=== PATIENT | female | born 1990 | race Caucasian/White ===

== ENCOUNTER 2017-12-02 11:29 | Emergency (ER) | payer OTHER, BC, MEDICAID ==
[~2017-12-02] VITALS: Ht 165.1 cm; Wt 83.5 kg
[~2017-12-02 11:29] MED LIST: BENZ56AE TP; HYDR-3583 PO; HYDR1TAB PO; IBP600T1 PO; OXYC-12 PO; PREN1TAB39 PO; SULF1TAB38 PO
--- OUTSIDE RECORDS SUMMARY | 2017-12-02 11:34 | XMS REPORT ---
Author HEATHER Bradford [facility] Address [address] [place] [address] Care Team Providers Care Direct Mail Coordinator Name Role Phone LIBERTY HEATHER Unavailable PROBLEMS Type Condition ICD9-CM Code TCD10-NT Code Onset Dates Condition Status SNOMED Code Problem Generalized anxiety disorder F41.1 Active 18370436 Problem Depressive disorder, not elsewhere classified F32.9 Active 52621818 ALLERGIES No Information ENCOUNTERS Encounter Location Date Diagnosis [place] [address] [address] July, [address] [address] July, test positive Z32.01 [place] [address] [address] Nov, [address] [address] Nov, Encounter for prescription of oral contraceptives Z30.011 ; Well woman exam Z01.419 ; control counseling Z30.09 ; Screening for STD sexually transmitted disease Z11.3 and Screening for cervical cancer Z12.4 [place] [address] [place] [id number] [place] [address] Oct, Visit for TB skin test Z11.[address] [address] Aug, Encounter for IUD removal Z30.432 and Encounter for Depo- Provera contraception Z30.42 [place] [address] [place] [id number] [place] [address] Apr, [place] [address] [address] Apr, [facility] [address] [place] [id number] [address] Mar, [facility] [address] [place] [id number] [address] Mar, [facility] [address] [place] [id number] [address] Feb, [facility] [address] [place] [id number] [address] Feb, [facility] [address] [place] [id number] [address] Sep, [facility] [address] [address] Feb, [facility] [address] [place] [id number] [address] Nov, IMMUNIZATIONS No Known Immunizations SOCIAL HISTORY Never Assessed REASON FOR VISIT test (walk-in) urine PLAN OF CARE VITAL SIGNS MEDICATIONS Unknown Medications RESULTS Name Result Date Reference Range TEST, URINE (IN HOUSE) 2017-07-15 RESULTS POSITIVE Lot # [id number] Control + Exp date 14 October 2018 PROCEDURES Procedure Date Ordered Result Body Site URINE TEST July 15, 2017 INSTRUCTIONS MEDICATIONS ADMINISTERED No Known Medications MEDICAL (GENERAL) HISTORY Type Description Date Medical History anxiety Surgical History cholecystectomy 2012 Hospitalization History childbirth only
--- OUTSIDE RECORDS SUMMARY | 2017-12-02 11:34 | XMS REPORT ---
Author Author LOWELL JOSE [facility] Address [address] [place] [address] Care Team Providers Care Hand I Cutter Name Role Phone LOWELL JOSE Unavailable PROBLEMS Type Condition ICD9-CM Code GAP70-CC Code Onset Dates Condition Status SNOMED Code Problem Generalized anxiety disorder F41.1 Active 06296494 Problem Depressive disorder, not elsewhere classified F32.9 Active 09748002 ALLERGIES No Known Allergies ENCOUNTERS Encounter Location Date Diagnosis [place] [address] [address] July, [address] [address] July, test positive Z32.01 [place] [address] [address] Nov, [place] [address] [address] Nov, Encounter for prescription of oral contraceptives Z30.011 ; Well woman exam Z01.419 ; control counseling Z30.09 ; Screening for STD sexually transmitted disease Z11.3 and Screening for cervical cancer Z12.4 [place] [address] [place] [id number] [place] [address] Oct, Visit for TB skin test Z11.1 [place] [address] [address] Aug, Encounter for IUD removal Z30.432 and Encounter for Depo- Provera contraception Z30.42 [place] [address] [place] [id number] [place] [address] Apr, [place] [address] [address] Apr, [facility] [place] [address] [place] [id number] [address] Mar, [facility] [id number] [address] Mar, [facility] [place] [id number] [address] Feb, [facility] [place] [id number] [address] Feb, [facility] [place] [id number] [address] Sep, [facility] [place] [id number] [address] Feb, [facility] [place] [address] [place] [id number] [address] Nov, IMMUNIZATIONS No Known Immunizations SOCIAL HISTORY Never Assessed REASON FOR VISIT control consult-Ryann, wants to switch to OCP due to cost PLAN OF CARE Activity Details Follow Up 1 Year with Jessica for well woman Reason: VITAL SIGNS Height 65 in 2016-11-19 Weight 159.8 lbs 2016-11-19 Temperature 98.2 degrees Fahrenheit 2016-11-19 Heart Rate 74 bpm 2016-11-19 Respiratory Rate 18 2016-11-19 BMI 26.59 kg/m2 2016-11-19 Blood pressure systolic 124 mmHg 2016-11-19 Blood pressure diastolic 72 mmHg 2016-11-19 MEDICATIONS Medication Instructions Dosage Frequency Start Date End Date Duration Status Ortho Tri-Cyclen (28) 0.18/0.215/0.25 MG-35 MCG Orally Once a day 1 tablet 24h Nov, 30 day(s) Active Depo-Provera 150 MG/ML 1 ml Active RESULTS Name Result Date Reference Range TEST, URINE (IN HOUSE) 2016-11-19 RESULTS Negative Lot # [id number] Control + Exp date 03/2018 TRICHOMONAS (IN HOUSE) 2016-11-19 TRICHOMONAS negative Control + Lot # [id number] Exp date 11/14/17 PDF Report 2016-11-19 PDF Report1 LCLS BACTERIAL VAGINOSIS (IN HOUSE) 2016-11-19 RESULTS negative Control + Lot # [id number] Exp date 05/04 PAP TEST, HPV IF ASCUS 2016-11-19 DIAGNOSIS: Specimen adequacy: Clinician provided ICD10: Performed by: . . Note: . CULTURE, GENITAL 2016-11-19 Genital Culture, Routine Final report Result 1 GC/CHLAM PROBE (STATE) 2016-11-19 CHLAMYDIA negative GC negative PROCEDURES Procedure Date Ordered Result Body Site URINE TEST Nov 19, 2016 No Charge Nov 19, 2016 CULTURE, BACTERIA, OTHER Nov 19, 2016 SPECIMEN HANDLING Nov 19, 2016 Bacterial Vaginosis In House Nov 19, 2016 TRICHOMONAS ASSAY W/OPTIC Nov 19, 2016 INSTRUCTIONS MEDICATIONS ADMINISTERED No Known Medications MEDICAL (GENERAL) HISTORY Type Description Date Medical History anxiety Surgical History cholecystectomy 2012 Hospitalization History childbirth only
--- OUTSIDE RECORDS SUMMARY | 2017-12-02 11:34 | XMS REPORT ---
Author Author KAMALJIT MELISSA [facility] Address [address] [place] [address] Care Team Providers Care Precipitator Supervisor Name Role Phone MELISSA MARI Unavailable PROBLEMS Type Condition ICD9-CM Code VSV53-CW Code Onset Dates Condition Status SNOMED Code Problem Generalized anxiety disorder F41.1 Active 41670377 Problem Depressive disorder, not elsewhere classified F32.9 Active 99168291 ALLERGIES No Known Allergies ENCOUNTERS Encounter Location Date Diagnosis [address] [address] July, [address] [address] July, test positive Z32.01 [place] [address] [address] Nov, [address] [address] Nov, 2016 Encounter for prescription of oral contraceptives Z30.011 ; Well woman exam Z01.419 ; control counseling Z30.09 ; Screening for STD sexually transmitted disease Z11.3 and Screening for cervical cancer Z12.4 [place] [id number] [place] [address] Oct, Visit for TB skin test Z11.[address] [address] Aug, Encounter for IUD removal Z30.432 and Encounter for Depo- Provera contraception Z30.42 [place] [address] [place] [id number] [place] [address] Apr, [address] [place] [address] Apr, [facility] [address] [place] [id number] [address] Mar, [facility] [address] [place] [id number] [address] Mar, [facility] [address], [place] [address] Feb, [facility] [address] [place] [address] Feb, [facility] [address] [address] Sep, [facility] [address], [place] [address] Feb, [facility] [address] [place] [id number], [place] [address] Nov, IMMUNIZATIONS No Known Immunizations SOCIAL HISTORY Never Assessed REASON FOR VISIT OB Flowsheet History--ADaviedRN PLAN OF CARE VITAL SIGNS MEDICATIONS Medication Instructions Dosage Frequency Start Date End Date Duration Status Ortho Tri-Cyclen (28) 0.18/0.215/0.25 MG-35 MCG Orally Once a day 1 tablet 24h Nov, 30 day(s) Not-Taking Depo-Provera 150 MG/ML 1 ml Not-Taking RESULTS No Results PROCEDURES No Known procedures INSTRUCTIONS MEDICATIONS ADMINISTERED No Known Medications MEDICAL (GENERAL) HISTORY Type Description Date Medical History anxiety Surgical History cholecystectomy 2012 Hospitalization History childbirth only
--- OUTSIDE RECORDS SUMMARY | 2017-12-02 11:35 | XMS REPORT | Continuity of Care Document ---
Author Author [facility] Organization [facility] Address Unknown Phone Unavailable Care Team Providers Care Unionmelt Operator Name Role Phone NO, LOCAL PHYSICIAN PP Unavailable Insurance Providers Payer Name Policy Number Subscriber Name Relationship Self Pay Shahnaz Javed N 01 Self / Same As Patient Advance Directives Directive Response Recorded Date Advance Directives N 08/21/12 5:17pm Health Care Power of Machinist Outside Y 08/21/12 12:05pm Problems No Known Problems or Medical conditions. Social History History Response Recorded Date/Time Alcohol Use Occasionally Uses 08/21/12 5: 17pm Recreational Drug Use N 08/21/12 5:17pm Allergies, Adverse Reactions, Alerts Allergen Type Severity Reaction Last Updated No Known Drug Allergies 05/14/11 Medications Medication Dose Units Route Sig Qty Days Acetaminophen/Hydrocodone Bitart (Lortab 5 Mg) 1 - 2 Ea PO Q 4 - 6 HR PRN 30 Trimethoprim/Sulfamethoxazole (Bactrim Ds) 1 Ea PO BID Oxycodone Hcl/Acetaminophen (Percocet 5-325 Mg Tablet) 1 - 2 Each PO Q 4-6 HRS NEEDED Ibuprofen (Motrin) 600 Mg PO Q 6 HRS NEEDED Vits W-Ca,Fe,Fa(<1MG) () 1 Each PO DAILY Response Recorded Date/Time Status not known Unknown Results No Known Relevant Diagnostic Tests, Laboratory Data and/or Discharge Summary. Procedures Procedure Code Date VACUUM EXTRACT DEL [facility] 72.79 07/20/11 Encounters Encounter Location Date/Time Discharged Inpatient [facility] 1:37pm Departed Emergency Room [facility] 12 :00am
--- OUTSIDE RECORDS SUMMARY | 2017-12-02 11:35 | XMS REPORT ---
Author Author HEATHER KOENIG [facility] Address [address] [place] [address] Care Team Providers Care Fleet Coordinator Name Role Phone LIBERTYHEATHER Unavailable PROBLEMS Type Condition ICD9-CM Code PCV51-NF Code Onset Dates Condition Status SNOMED Code Problem Generalized anxiety disorder F41.1 Active 78815367 Problem Depressive disorder, not elsewhere classified F32.9 Active 23059982 ALLERGIES No Information ENCOUNTERS Encounter Location Date Diagnosis [place] [address] [place] [id number] [place] [address] Nov, [place] [address] [address] Nov, Encounter for prescription of oral contraceptives Z30.011 ; control counseling Z30.09 ; Screening for STD sexually transmitted disease Z11.3 and Screening for cervical cancer Z12.4 [place] [address] [place] [id number] [place] [address] Oct, Visit for TB skin test Z11.1 [place] [address] [place] [id number] [place] [address] Aug, Encounter for IUD removal Z30.432 and Encounter for Depo- Provera contraception Z30.42 [place] [address] [place] [address] Apr, [place] [address] [place] [id number] [place] [address] Apr, [place] [address] [place] [id number] [place] [address] Mar, [place] [address] [place] [id number] [place] [address] Mar, [place] [address] [facility] [id number] [address] Feb, [facility] [address] [facility] [place] [id number] [address] Feb, [facility] [address] [facility] [id number] [address] Sep, [facility] [address] [facility] [id number] [address] Feb, [facility] [address] [facility] [id number] Nov, IMMUNIZATIONS No Known Immunizations SOCIAL HISTORY Never Assessed REASON FOR VISIT TB skin test- Derian MUNIZ PLAN OF CARE Activity Details Follow Up 48-72 hours Reason: VITAL SIGNS MEDICATIONS Unknown Medications RESULTS No Results PROCEDURES Procedure Date Ordered Result Body Site TB INTRADERMAL 2016-11-13 N/A TB INTRADERMAL TEST Nov 13, 2016 INSTRUCTIONS MEDICATIONS ADMINISTERED No Known Medications MEDICAL (GENERAL) HISTORY Type Description Date Surgical History cholecystectomy 2012
--- OUTSIDE RECORDS SUMMARY | 2017-12-02 11:35 | XMS REPORT | Continuity of Care Document ---
Author Author [facility] Address Unknown Phone Unavailable Allergies Active Description Code Type Severity Reaction Onset Reported/Identified Relationship to Patient Clinical Status Yes No Known Drug Allergies [id number] Drug Allergy Unknown N/A 05/14/2011 Medications There is no data. Problems Date Dx Coded Attending Type Code Diagnosis Diagnosed By 11/24/2008 V25.49 Gynecologic Service Prescrip Of Contracept Agent - Repeat Rx 11/24/2008 V69.2 sexually active, frequently with new partners 11/24/2008 V72.31 Pelvic Exam ( Internal) 11/24/2008 V74.5 visit for: screening exam bact/spirochetal venereal disease 11/24/2008 DERIK ESCOBAR PHD V25.49 Gynecologic Service Prescrip Of Contracept Agent - Repeat Rx 11/24/2008 DERIK ESCOBAR PHD V69.2 sexually active, frequently with new partners 11/24/2008 DERIK ESCOBAR PHD V72.31 Pelvic Exam (Internal) 11/24/2008 DERIK ESCOBAR PHD V74.5 visit for: screening exam bact/spirochetal venereal disease 05/21/2010 381.01 OTITIS MEDIA , ACUTE SEROUS 05/21/2010 477.0 ALLERGIC RHINITIS DUE TO POLLEN 05/21/2010 DERIK ESCOBAR PHD 381.01 OTITIS MEDIA, ACUTE SEROUS 05/21/2010 DERIK ESCOBAR PHD 477.0 ALLERGIC RHINITIS DUE TO POLLEN 05/14/2011 Ot 641.93 06/09/2011 Ot 644.03 07/02/2011 Ot 648.73 07/02/2011 Ot 648.93 07/02/2011 Ot 724.2 07/02/2011 Ot 959.19 07/02/2011 Ot E000.8 07/02/2011 Ot E849.6 07/02/2011 Ot E888.9 07/15/2011 Ot 644.03 07/22/2011 Ot 287.5 07/22/2011 Ot 648.91 07/22/2011 Ot 649.31 07/22/2011 Ot 663.11 07/22/2011 Ot V02.51 07/22/2011 Ot V07.2 07/22/2011 Ot V27.0 03/05/2012 300.02 AN GEN ANXIETY 03/05/2012 311 DEPRESSIVE DISORDER NOS 03/05/2012 LUZ MODI, DERIK Sotelo 300.02 AN GEN ANXIETY 03/05/2012 LUZ MODI, DERIK Sotelo 311 DEPRESSIVE DISORDER NOS 08/22/2012 JONNATHAN HALL, NATALY Duarte Ot 574.00 CHOLELITH W AC CHOLECYST 08/22/2012 JONNATHAN HALL, NATALY Duarte Ot 574.10 CHOLELITH W CHOLECYS NEC 08/22/2012 JONNATHAN HALL, NATALY Duarte Ot 599.0 URIN TRACT INFECTION NOS 11/05/2017 KUMAR MARTINEZ DO Ot Z36.89 ENCOUNTER FOR OTHER SPECIFIED 11/05/2017 KUMAR MARTINEZ DO Ot Z3A.21 21 WEEKS GESTATION OF 11/26/2017 KUMAR MARTINEZ DO Ot Z36.89 ENCOUNTER FOR OTHER SPECIFIED 11/26/2017 KUMAR MARTINEZ DO Ot Z3A.21 21 WEEKS GESTATION OF Procedures Code [place] [address] PSYCH DIAG INTER EXAM 03/05/2012 61068 PSYCHO TESTING 1 HR W COMP 03/24/2012 Results Test Result Range Genital Culture, Routine - 11/19/16 16:24 Genital Culture, Routine Note Pap Lb, rfx HPV ASCU - 11/19/16 16:24 DIAGNOSIS: Comment Specimen adequacy: Comment Clinician provided ICD10: Comment Performed by: Comment . . Note: Comment . Comment PAP TEST, HPV IF ASCUS - 11/19/16 16:24 DIAGNOSIS: NRG Specimen adequacy: NRG Clinician provided ICD10: NRG Performed by: NRG . . NRG Note: NRG . NRG CULTURE, GENITAL - 11/19/16 16:24 Genital Culture, Routine Final report NRG Result 1 NRG Encounters ACCT No. Visit Date/Time Discharge Status Pt. Type Provider Facility Loc./Unit Complaint [id number] 03/23/2012 11:53:00 03/23/2012 23:59:59 CLS Outpatient DERIK ESCOBAR PHD [id number] 03/05/2012 12:56:00 03/05/2012 23:59:59 CLS Outpatient [id number] 11/22/2016 13:06:00 Document Registration [id number] 11/04/2017 09:48:00 11/04/2017 23:59:59 CLS Outpatient MICHELLE KUMAR BILLINGS [facility] RAD 15 WEEKS GESTATION OF [id number] 08/21/2012 15:15:00 08/22/2012 15:35:00 DIS Outpatient NATALY DE SANTIAGO MD [facility] SDC CHOLECYSTITIS UTI [id number] 07/19/2011 13:37:00 Document Registration [id number] 07/14/2011 20:57:00 Document Registration [id number] 07/02/2011 15:07:00 Document Registration [id number] 06/09/2011 13:32:00 Document Registration [id number] 05/14/2011 14:53:00 Document Registration [id number] 11/21/2016 22:08:00 Document Registration [id number] 07/15/2017 16:40:00 07/15/2017 23:59:59 CLS Outpatient LEXX RACHID [facility] [id number] 11/19/2016 15:00:00 Document Registration
--- OUTSIDE RECORDS SUMMARY | 2017-12-02 11:35 | XMS REPORT | Continuity of Care Document ---
Author Author [facility] Organization [facility] Address Unknown Phone Unavailable Care Team Providers Care Dust Collector Attendant Name Role Phone NO, LOCAL PHYSICIAN PP Unavailable Insurance Providers Payer Name Policy Number Subscriber Name Relationship Self Pay TeganShahnaz N 01 Self / Same As Patient Advance Directives Directive Response Recorded Date Advance Directives N 08/21/12 5:17pm Health Care Power of Corporate Security Manager Y 08/21/12 12:05pm Problems No Known Problems [...] Recorded Date/Time Status not known Unknown Results Test Date Result Interp. Ref. Range Alanine Aminotransferase (ALT/SGPT) August 21, 2012 12:20pm 34 U/L N 30-65 Albumin August 21, 2012 12:20pm 3.9 G/DL N 3.4-5.0 Alkaline Phosphatase August 21, 2012 12:20pm 115 U/L N 50-136 Aspartate Amino Transf (AST/SGOT) August 21, 2012 12:20pm 19 U/L N 15-37 BUN/Creatinine Ratio August 21, 2012 12:20pm 11 - Basophils # (Auto) August 21, 2012 12:20pm 0.1 10^3/uL N 0.0-0.1 Basophils (%) (Auto) August 21, 2012 12:20pm 0 % N 0-10 Blood Urea Nitrogen August 21, 2012 12:20pm 10 MG/DL N 7-18 Calcium Level August 21, 2012 12:20pm 9.1 MG/DL N 8.5-10.1 Carbon Dioxide Level August 21, 2012 12:20pm 28 MMOL/L N 21-32 Chloride Level August 21, 2012 12:20pm 99 MMOL/L L 101-110 Creatinine August 21, 2012 12:20pm 0.9 MG/ DL N 0.6-1.3 Eosinophils # (Auto) August 21, 2012 12:20pm 0.1 10^3/uL N 0.0-0.3 Eosinophils (%) (Auto) August 21, 2012 12:20pm 0 % N 0-10 Glucose Level August 21, 2012 12:20pm 90 MG/DL N 74-106 Hematocrit August 21, 2012 12:20pm 47 % N 35-52 Hemoglobin August 21, 2012 12:20pm 16.5 G/ DL H 11.5-16.0 Lymphocytes # (Auto) August 21, 2012 12:20pm 3.1 X 10^3 N 1.0-4.0 Lymphocytes (%) (Auto) August 21, 2012 12:20pm 23 % N 12-44 Mean Corpuscular Hemoglobin August 21, 2012 12:20pm 30 PG N 25-34 Mean Corpuscular Hemoglobin Concent August 21, 2012 12:20pm 35 G/DL N 32-36 Mean Corpuscular Volume August 21, 2012 12:20pm 86 FL N 80-99 Mean Platelet Volume August 21, 2012 12:20pm 11.4 FL H 7.4-10.4 Monocytes # (Auto) August 21, 2012 12:20pm 1.0 X 10^3 N 0.0-1.0 Monocytes (%) (Auto) August 21, 2012 12:20pm 7 % N 0-12 Neutrophils # (Auto) August 21, 2012 12:20pm 9.0 X 10^3 H 1.8-7.8 Neutrophils (%) (Auto) August 21, 2012 12:20pm 68 % N 42-75 Platelet Count August 21, 2012 12:20pm 219 10^3/uL N 130-400 Potassium Level August 21, 2012 12:20pm 3.6 MMOL/L N 3.6-5.0 Red Blood Count August 21, 2012 12:20pm 5.47 10^6/uL N 4.35-5.85 Red Cell Distribution Width August 21, 2012 12:20pm 13.4 % N 10.0-14.5 Sodium Level August 21, 2012 12:20pm 134 MMOL/L L 135-145 Total Bilirubin August 21, 2012 12:20pm 0.9 MG/DL N 0.0-1.0 Total Protein August 21, 2012 12:20pm 7.8 G/DL N 6.4-8.2 Urine Bacteria August 21, 2012 12:50pm NEGATIVE /HPF - Urine Bilirubin August 21, 2012 12:50pm NEGATIVE - Urine Casts August 21, 2012 12:50pm NONE / LPF - Urine Clarity August 21, 2012 12:50pm SLIGHTLY CLOUDY - Urine Color August 21, 2012 12:50pm YELLOW - Urine Crystals August 21, 2012 12:50pm NONE /LPF - Urine Culture Indicated August 21, 2012 12:50pm YES - Urine Glucose (UA) August 21, 2012 12:50pm NEGATIVE - Urine Ketones August 21, 2012 12:50pm 1+ H - Urine Leukocyte Esterase August 21, 2012 12:50pm 1+ H - Urine Mucus August 21, 2012 12:50pm SMALL /LPF H - Urine Nitrite August 21, 2012 12:50pm NEGATIVE - Urine Protein August 21, 2012 12:50pm NEGATIVE - Urine RBC August 21, 2012 12:50pm NONE / HPF - Urine Specific Buhl August 21, 2012 12:50pm 1.020 - Urine Squamous Epithelial Cells August 21, 2012 12:50pm NONE /HPF - Urine Urobilinogen August 21, 2012 12:50pm 1 MG/DL - Urine WBC August 21, 2012 12:50pm 5-10 / HPF H - Urine pH August 21, 2012 12:50pm 6.5 - White Blood Count August 21, 2012 12:20pm 13.2 10^3/uL H 4.3-11.0 Estimat Glomerular Filtration Rate August 21, 2012 12:20pm > 60 - Urine RBC (Auto) August 21, 2012 12:50pm NEGATIVE - Procedures Procedure Code Date VACUUM EXTRACT DEL NEC 72.79 07/20/11 Urine Culture 07/19/11 Encounters Encounter Location Date/Time Discharged Inpatient [facility] 3:15pm Departed Emergency Room [facility] 12 :00am
--- OUTSIDE RECORDS SUMMARY | 2017-12-02 11:35 | XMS REPORT ---
Author Author LOWELL JOSE Organization [facility] Address [address] [place] [address] Care Team Providers Care Mechanical Pencils Assembler Name Role Phone REBECA LOWELL Unavailable PROBLEMS Type Condition ICD9-CM Code [id number] Code Onset Dates Condition Status SNOMED Code Problem Generalized anxiety disorder F41.1 Active 42687615 Problem Depressive disorder, not elsewhere classified F32.9 Active [id number] ALLERGIES No Information ENCOUNTERS Encounter Location Date Diagnosis [place] [id number] [place] [phone] Nov, [place] [address] [address] Nov, Encounter for prescription of oral contraceptives Z30.011 ; control counseling Z30.09 ; Screening for STD sexually transmitted disease Z11.3 and Screening for cervical cancer Z12.4 [facility] [id number] [place] [address] Oct, Visit for TB skin test Z11.1 [place] [id number] [place] [address] Aug, Encounter for IUD removal Z30.432 and Encounter for Depo- Provera contraception Z30.42 [facility] [id number] [place] [phone] Apr, [facility] [id number] [place] [phone] Apr, [facility] [id number] [place] [phone] Mar, [place] [id number] [place] [phone] Mar, [facility] [address] [facility] [id number] [address] Feb, [facility] [address] [address] Feb, [facility] [id number] [address] Sep, [facility] [address] [address] Feb, [facility] [address] [facility] [id number], [place] [address] Nov, IMMUNIZATIONS No Known Immunizations SOCIAL HISTORY Never Assessed REASON FOR VISIT 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
[2017-12-02] MEDS ORDERED: ACETAMINOPHEN 500 MG TAB (TYLENOL) PO ONE (13:30)
--- NOTE | 2017-12-02 13:56 | ED Lower Extremity ---
General Chief Complaint: Trauma-Non Activation Stated Complaint: FALL;26 WKS Nursing Triage Note: Pt slipped and fell onto right hip. 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 Pt stated that she did not hit her stomach and fell on her right hip only. Nursing Sepsis Screen: No Definite Risk Source: patient Exam Limitations: no limitations History of Present Illness Date Seen by Provider: Dec 02, 2017 Time Seen by Provider: 13:18 Initial Comments Patient is a 27-year-old female who presents to the emergency room with complaints of right hip pain after slipping on water at work. She is 26 weeks and her OB doctor is Dr. Martinez. She denies a direct blow with slipping and falling but repots that when she slipped it caused her to do the splits and she fell backwards on the her buttocks. She reports that the baby has been active all day and remains active after the fall. She has been able to ambulate with out difficulty. heart tones on doppler: 142 on exam. Location Injury Occurred: right hip Onset: just prior to arrival Pain/Injury Location: right hip Method of Injury: fell Modifying Factors: Worse With Movement Allergies and Home Medications Allergies Coded Allergies: No Known Drug Allergies (Unverified , 05/14/11) Home Medications No Active Prescriptions or Reported Meds Patient Home Medication List Home Medication List Reviewed: Yes Review of Systems Constitutional: see HPI; No chills, No fever : Yes Expected Date of Delivery: Mar 11, 2018 LMP: Jun 05, 2017 Musculoskeletal: see HPI, joint pain (right hip), muscle pain (right hip), muscle stiffness (right hip) All Other Systems Reviewed Negative Unless Noted: Yes Past Vkalysb-Smowzh-Ceqzhg Hx Past Med/Social Hx: Reviewed Nursing Past Med/Soc Hx Patient Social History Alcohol Use: Denies Use Recreational Drug Use: No (PAST HX OF POT) Smoking Status: Current Everyday Smoker Type Used: Cigarettes 2nd Hand Smoke Exposure: Yes Recent Foreign Travel: No Contact w/Someone Who Travel: No Recent Infectious Disease Expo: No Recent Hopitalizations: No Physical Abuse: No Sexual Abuse: No Mistreated: No Fear: No Past Medical History Surgeries: Yes Gallbladder Respiratory: No Cardiac: No Neurological: No : Yes Expected Date of Delivery: Mar 11, 2018 Last Menstrual Period: Jun 05, 2017 Reproductive Disorders: No Gastrointestinal: No Musculoskeletal: No Endocrine: No Psychosocial: No Integumentary: No Blood Disorders: No Family Medical History Reviewed Nursing Family Hx Physical Exam Vital Signs Vital Signs - First Documented 12/02/17 12:00 Temp 98.1 Pulse 91 Resp 16 B/P (MAP) 112/62 (79) Pulse Ox 94 O2 Delivery Room Air Capillary Refill : Less Than 3 Seconds Height, Weight, BMI Height: 5'5.00" Weight: 184lbs. oz. 83.205024pa; BMI Method:Stated General Appearance: WD/WN, no apparent distress Neck: non-tender, full range of motion, supple, normal inspection Cardiovascular: normal peripheral pulses, regular rate, rhythm, no edema, no gallop, no JVD, no murmur Respiratory: chest non-tender, lungs clear, normal breath sounds, no respiratory distress, no accessory muscle use Gastrointestinal: normal bowel sounds, non tender, soft, no organomegaly, no pulsatile mass Hips: left hip non-tender; bilateral hip normal inspection, bilateral hip normal range of motion; right hip pain Neurologic/Psychiatric: alert, normal mood/affect, oriented x 3 Skin: normal color, warm/dry Progress/Results/Core Measures Results/Orders My Orders Orders - LAUREEN STEWART Acetaminophen Tablet (Tylenol Tablet) (12/02/17 13:30) Vital Signs/I&O 12/02/17 12/02/17 12:00 14:17 Temp 98.1 98.4 Pulse 91 87 Resp 16 16 B/P (MAP) 112/62 (79) 131/83 Pulse Ox 94 98 O2 Delivery Room Air Room Air Blood Pressure Mean: 79 Progress Progress Note : Time: 13:50 Progress Note I have seen and evaluated the patient. I have discussed the risk and benefits performing imaging studies and the patient declines imaging studies at this time. I have discussed the case with Dr. Martinez and she agrees that we should hold off on imaging at this time and that her injury sounds muscle related in nature. She has offered to observe the patient on labor and delivery for further evaluation if the patient wishes. 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 I have given tylenol for pain. The patient agrees with plans for discharge, return precautions were given. Departure Impression Primary Impression: Right hip pain Disposition: 01 HOME, SELF-CARE Condition: Stable/Unchanged Departure-Patient Inst. Decision time for Depature: 13:53 Referrals: NO,LOCAL PHYSICIAN (PCP) Primary Care Physician KUMAR MARTINEZ DO Patient Instructions: Hip Pain (DC) Add. Discharge Instructions: You may continue to use Tylenol as needed for pain. I did speak to Dr. Martinez and she said if you need to add an anti-inflammatory like ibuprofen you can take it up until 28 weeks if needed. After that you need to use icy hot in replace of the anti-inflammatory. Keep your appointment as scheduled on with Dr. Martinez.. Return back to the emergency room for any worsening symptoms, increased pain, decreased activity, or any other concerns as needed. All discharge instructions reviewed with patient and/or family. Voiced understanding. Scripts No Active Prescriptions or Reported Meds LAUREEN STEWART Dec 02, 2017 13:56
[2017-12-02 14:17] VITALS: BP 131/83
== END 2017-12-02 14:17 | disposition home or self-care (01) ==
LOC: EDUNIT# 11:29 → ER 11:30
DX: O26.892 Other specified pregnancy related conditions, second trimester (principal); M25.551 Pain in right hip; O99.332 Smoking (tobacco) complicating pregnancy, second trimester; F17.210 Nicotine dependence, cigarettes, uncomplicated; Z3A.26 26 weeks gestation of pregnancy; W01.0XXA Fall on same level from slipping, tripping and stumbling without subsequent striking against object, initial encounter; Y92.59 Other trade areas as the place of occurrence of the external cause; Y99.0 Civilian activity done for income or pay

== ENCOUNTER → 2017-12-12 | Outpatient (CLI) | payer BC, MEDICAID ==
--- NOTE | 2017-12-12 16:03 | Diagnostic Imaging Report ---
INDICATION: Followup assessment of anatomy not seen on previous anatomy survey. TECHNIQUE: Multiple real-time grayscale images were obtained over the gravid uterus. COMPARISON: 11/04/2017. FINDINGS: There is a single live intrauterine in the cephalic presentation. Placenta is anteriorly located, and there is no previa. heart rate is 139 beats per minute. The MIHAI is normal at 9.1 cm. anatomy structures that were evaluated and are normal are as follows: Cerebral ventricles, cisterna magna, cerebellum, four-chamber heart, stomach, kidneys, and urinary bladder. The thoracic and lumbar spine are normal in appearance. The cervical spine is again suboptimally imaged due to positioning. Previously noted echogenic focus within the left ventricle has resolved. IMPRESSION: 1. Echogenic focus in the left cardiac ventricle has resolved. 2. spine is grossly normal but again the cervical spine is not well seen due to positioning. Dictated by: Dictated on workstation # [id number]
== END ==
LOC: RAD 12:06
PROVIDERS: ATTEND Obstetrics & Gynecology
DX: Z36.89 Encounter for other specified antenatal screening (principal); Z3A.00 Weeks of gestation of pregnancy not specified
CPT/HCPCS: 76816

== ENCOUNTER 2018-01-10 10:15 | Outpatient (CLI) | payer BC, MEDICAID ==
[~2018-01-10] VITALS: Ht 165.1 cm; Wt 85.7 kg
[2018-01-10 10:30] VITALS: BP 116/72
[2018-01-10 10:50] LABS: BILIRUBIN,URINE NEGATIVE (NEGATIVE); CLARITY,URINE VERY CLOUDY; COLOR,URINE YELLOW; GLUCOSE, URINE (UA) NEGATIVE (NEGATIVE); KETONES,URINE 2+ (NEGATIVE); LEUKOCYTE ESTERASE ,URINE 3+ (NEGATIVE); NITRITE,URINE NEGATIVE (NEGATIVE); PH,URINE 7 (5-9); PROTEIN,URINE NEGATIVE (NEGATIVE); UROBILINOGEN,URINE NORMAL (NORMAL)
[2018-01-10 11:09] LABS: BACTERIA,URINE FEW /HPF
[2018-01-10 11:10] LABS: SQUAMOUS EPITHELIAL CELL,UR 25-50 /HPF
[2018-01-10] MEDS ORDERED: PREN-53 PO (11:29)
[2018-01-10 11:50] LABS: BASOPHILS % (AUTO) 0 % (0-10); EOSINOPHILS % (AUTO) 0 % (0-10); HEMATOCRIT 32 % (35-52); HEMOGLOBIN 10.9 G/DL (11.5-16.0); LYMPHOCYTES % (AUTO) 20 % (12-44); MEAN CORPUSCULAR HEMOGLOBIN 32 PG (25-34); MEAN CORPUSCULAR HGB CONC 34 G/DL (32-36); MEAN CORPUSCULAR VOLUME 93 FL (80-99); MEAN PLATELET VOLUME 11.2 FL (7.4-10.4); MONOCYTES # (AUTO) 0.5 X 10^3 (0.0-1.0); MONOCYTES % (AUTO) 6 % (0-12); NEUTROPHILS # (AUTO) 7.2 X 10^3 (1.8-7.8); NEUTROPHILS % (AUTO) 74 % (42-75); PLATELET COUNT 166 10^3/uL (130-400); RED BLOOD COUNT 3.46 10^6/uL (4.35-5.85); RED CELL DISTRIBUTION WIDTH 12.8 % (10.0-14.5); WHITE BLOOD COUNT 9.7 10^3/uL (4.3-11.0)
[2018-01-10] MEDS ORDERED: FLU QUADRIvalent (5+ YOA) 2018-2019 (AFLURIA) 0.5 ML IM ONE (12:45)
--- NOTE | 2018-01-13 16:58 | Physician Query-Final Dx ---
PAL ALLRED 01/13/18 1658: Clinic Account Progress/Dx Physician Query: Please give diagnosis Date of Service Jan 10, 2018 at 10:15 KUMAR MARTINEZ DO 01/27/18 1409: Clinic Account Progress/Dx DIAGNOSIS: Diagnosis third trimester round ligament pain PAL ALLRED Jan 13, 2018 16:58 KUMAR MARTINEZ DO Jan 27, 2018 14:09
== END 2018-01-10 12:24 | disposition home or self-care (01) ==
LOC: WSo 10:15 → LDRP 10:15 → WSo 12:24
PROVIDERS: ATTEND Obstetrics & Gynecology
DX: O99.89 Other specified diseases and conditions complicating pregnancy, childbirth and the puerperium (principal); R10.2 Pelvic and perineal pain
CPT/HCPCS: 36415; 81000; 85025; 87088; 99213

== ENCOUNTER 2018-02-10 09:38 | Outpatient (CLI) | payer BC, MEDICAID ==
[~2018-02-10] VITALS: Ht 165.1 cm; Wt 87.1 kg
[2018-02-10] VITALS (9 sets, daily range): BP systolic 109–118; BP diastolic 63–70
[~2018-02-10 09:38] MED LIST changes: +PREN-53 PO
[2018-02-10 10:01] LABS: BILIRUBIN,URINE NEGATIVE (NEGATIVE); CLARITY,URINE CLEAR; COLOR,URINE YELLOW; GLUCOSE, URINE (UA) NEGATIVE (NEGATIVE); KETONES,URINE 2+ (NEGATIVE); LEUKOCYTE ESTERASE ,URINE 2+ (NEGATIVE); NITRITE,URINE NEGATIVE (NEGATIVE); PH,URINE 7 (5-9); PROTEIN,URINE 1+ (NEGATIVE); UROBILINOGEN,URINE 4 MG/DL (NORMAL)
[2018-02-10 10:15] LABS: BACTERIA,URINE MODERATE /HPF
[2018-02-10] MEDS ORDERED: LACTATED RINGERS 1,000 ML IV SCH (11:15)
[2018-02-10] MEDS ORDERED: FLU QUADRIvalent (5+ YOA) 2018-2019 (AFLURIA) 0.5 ML IM ONE (13:00)
[2018-02-10] MEDS ORDERED: BETAMETHASONE ACE/NA PHOS 6 MG/ML (CELESTONE SOLUSPAN) ONE (13:03)
[2018-02-10] MEDS ORDERED: BETAMETHASONE ACE/NA PHOS 6 MG/ML (CELESTONE SOLUSPAN) IM ONE (13:15)
[2018-02-10] MEDS ORDERED: CEPHALEXIN 250 MG (KEFLEX) CAP PO NR (13:45)
[2018-02-10] MEDS ORDERED: CEPH-507 PO (14:31)
== END 2018-02-10 14:35 | disposition home or self-care (01) ==
LOC: WSo 09:38 → LDRP 09:39 → WS 09:49 → WSo 14:35
PROVIDERS: ATTEND Obstetrics & Gynecology
DX: O99.89 Other specified diseases and conditions complicating pregnancy, childbirth and the puerperium (principal); O62.2 Other uterine inertia; Z3A.35 35 weeks gestation of pregnancy
CPT/HCPCS: 81000; 87088; 96360; 96361; 96372; 99214

== ENCOUNTER 2018-02-27 23:49 | Inpatient (IN) | payer MEDICAID ==
[~2018-02-27] VITALS: Ht 165.1 cm; Wt 84.8 kg
[~2018-02-27 23:49] MED LIST changes: +CEPH-507 PO
[2018-02-28] VITALS (60 sets, daily range): BP systolic 93–137; BP diastolic 55–84
[2018-02-28 00:29] LABS: BILIRUBIN,URINE NEGATIVE (NEGATIVE); CLARITY,URINE SLIGHTLY CLOUDY; COLOR,URINE YELLOW; GLUCOSE, URINE (UA) NEGATIVE (NEGATIVE); KETONES,URINE NEGATIVE (NEGATIVE); LEUKOCYTE ESTERASE ,URINE 2+ (NEGATIVE); NITRITE,URINE NEGATIVE (NEGATIVE); PH,URINE 6.5 (5-9); PROTEIN,URINE 1+ (NEGATIVE); UROBILINOGEN,URINE 4 MG/DL (NORMAL)
[2018-02-28 00:37] LABS: BACTERIA,URINE TRACE /HPF; WBC,URINE 0-2 /HPF
[2018-02-28] MEDS ORDERED: MINERAL OIL CONCENTRATE 99.9% 15 ML UDC TOP PRN (01:15)
[2018-02-28] MEDS: D5 LR IV SOLUTION 1,000 ML IV SCH ×3 (01:33→16:30)
[2018-02-28 01:40] LABS: BASOPHILS % (AUTO) 0 % (0-10); EOSINOPHILS # (AUTO) 0.1 10^3/uL (0.0-0.3); EOSINOPHILS % (AUTO) 1 % (0-10); HEMATOCRIT 33 % (35-52); HEMOGLOBIN 10.9 G/DL (11.5-16.0); LYMPHOCYTES # (AUTO) 3.2 X 10^3 (1.0-4.0); LYMPHOCYTES % (AUTO) 30 % (12-44); MEAN CORPUSCULAR HEMOGLOBIN 30 PG (25-34); MEAN CORPUSCULAR HGB CONC 33 G/DL (32-36); MEAN CORPUSCULAR VOLUME 92 FL (80-99); MONOCYTES # (AUTO) 0.9 X 10^3 (0.0-1.0); MONOCYTES % (AUTO) 8 % (0-12); NEUTROPHILS # (AUTO) 6.8 X 10^3 (1.8-7.8); NEUTROPHILS % (AUTO) 62 % (42-75); PLATELET COUNT 180 10^3/uL (130-400); RED CELL DISTRIBUTION WIDTH 14.5 % (10.0-14.5); WHITE BLOOD COUNT 10.9 10^3/uL (4.3-11.0)
--- OUTSIDE RECORDS SUMMARY | 2018-02-28 02:06 | XMS REPORT | Continuity of Care Document ---
Author Author [facility] Address Unknown Phone Unavailable Allergies Active Description Code Type Severity Reaction Onset Reported/Identified Relationship to Patient Clinical Status Yes No Known Drug Allergies [id number] Drug Allergy Unknown N/A 05/14/2011 Medications There [...] 03/05/2012 311 DEPRESSIVE DISORDER NOS 03/05/2012 LUZ PHD, DERIK A 300.02 AN GEN ANXIETY 03/05/2012 LUZ PHD, DERIK A 311 DEPRESSIVE DISORDER NOS 08/22/2012 JONNATHAN HALL, NATALY Duarte Ot 574.00 CHOLELITH W AC CHOLECYST 08/22/2012 JONNATHAN HALL, NATALY Duarte Ot 574.10 CHOLELITH W CHOLECYS NEC 08/22/2012 JONNATHAN HALL, NATALY Duarte Ot 599.0 URIN TRACT INFECTION NOS 11/05/2017 MARTINEZ DO KUMAR C Ot Z36.89 ENCOUNTER FOR OTHER SPECIFIED 11/05/2017 MARTINEZ DO KUMAR C Ot Z3A.21 21 WEEKS GESTATION OF 11/26/2017 MARTINEZ DO KUMAR C Ot Z36.89 ENCOUNTER FOR OTHER SPECIFIED 11/26/2017 MARTINEZ DO KUMAR C Ot Z3A.21 21 WEEKS GESTATION OF 12/02/2017 MARTINEZ DO KUMAR C Ot Z36.89 ENCOUNTER FOR OTHER SPECIFIED 12/02/2017 MARTINEZ DO KUMAR C Ot Z3A.21 21 WEEKS GESTATION OF 12/02/2017 LAUREEN STEWART Ot F17.210 NICOTINE DEPENDENCE, CIGARETTES, UNCOMPL 12/02/2017 LAUREEN STEWART Ot M25.551 PAIN IN RIGHT HIP 12/02/2017 LAUREEN STEWART Ot O26.892 OT RELATED CONDITIONS, SECOND 12/02/2017 LAUREEN STEWART Ot O99.332 SMOKING (TOBACCO) COMPLICATING 12/02/2017 LAUREEN STEWART Ot W01.0XXA FALL SAME LEV FROM SLIP/TRIP W/O STRIKE 12/02/2017 LAUREEN STEWART Ot Y92.[address] 12/02/2017 LAUREEN STEWART Ot Y99.0 CIVILIAN ACTIVITY DONE FOR INCOME OR PAY 12/02/2017 LAUREEN STEWART Ot Z3A.26 26 WEEKS GESTATION OF 12/04/2017 LAUREEN STEWART Ot F17.210 NICOTINE DEPENDENCE, CIGARETTES, UNCOMPL 12/04/2017 LAUREEN STEWART Ot M25.551 PAIN IN RIGHT HIP 12/04/2017 LAUREEN STEWART Ot O26.892 OTH RELATED CONDITIONS, SECOND 12/04/2017 LAUREEN STEWART Ot O99.332 SMOKING (TOBACCO) COMPLICATING 12/04/2017 LAUREEN STEWART Ot W01.0XXA FALL SAME LEV FROM SLIP/TRIP W/O STRIKE 12/04/2017 LAUREEN STEWART Ot Y92.[address] 12/04/2017 LAUREEN STEWART Ot Y99.0 CIVILIAN ACTIVITY DONE FOR INCOME OR PAY 12/04/2017 LAUREEN SETWART Ot Z3A.26 26 WEEKS GESTATION OF 12/08/2017 MARTINEZ DO KUMAR C Ot Z36.89 ENCOUNTER FOR OTHER SPECIFIED 12/08/2017 MARTINEZ DO KUMAR C Ot Z3A.21 21 WEEKS GESTATION OF 12/13/2017 MARTINEZ DO KUMAR C Ot Z36.89 ENCOUNTER FOR OTHER SPECIFIED 12/13/2017 MARTINEZ DO, KUMAR C Ot Z3A.00 WEEKS OF GESTATION OF NOT SPEC 12/13/2017 MARTINEZ DO KUMAR C Ot Z36.89 ENCOUNTER FOR OTHER SPECIFIED 12/13/2017 MARTINEZ DO, KUMAR C Ot Z3A.00 WEEKS OF GESTATION OF NOT SPEC 01/10/2018 MARTINEZ DO KUMAR C Ot O99.89 OTH DISEASES AND CONDITIONS COMPL PREG/C 01/10/2018 MARTINEZ DO KUMAR C Ot R10.2 PELVIC AND PERINEAL PAIN 01/12/2018 MARTINEZ DO KUMAR C Ot Z36.89 ENCOUNTER FOR OTHER SPECIFIED 01/12/2018 MARTINEZ DO, KUMAR C Ot Z3A.00 WEEKS OF GESTATION OF NOT SPEC 01/30/2018 MARTINEZ DO KUMAR C Ot O99.89 OTH DISEASES AND CONDITIONS COMPL PREG/C 01/30/2018 MARTINEZ DO KUMAR C Ot R10.2 PELVIC AND PERINEAL PAIN 02/10/2018 MARTINEZ DO KUMAR C Ot O62.2 OTHER UTERINE INERTIA 02/10/2018 MARTINEZ DO KUMAR C Ot O99.89 OTH DISEASES AND CONDITIONS COMPL PREG/C 02/10/2018 KUAMR MARTINEZ DO Ot Z3A.35 35 WEEKS GESTATION OF 02/12/2018 KUMAR MARTINEZ DO Ot O62.2 OTHER UTERINE INERTIA 02/12/2018 KUMAR MARTINEZ DO Ot O99.89 OTH DISEASES AND CONDITIONS COMPL PREG/C 02/12/2018 KUMAR MARTINEZ DO Ot Z3A.35 35 WEEKS GESTATION OF 02/27/2018 KUMAR MARTINEZ DO Ot Z36.89 ENCOUNTER FOR OTHER SPECIFIED 02/27/2018 KUMAR MARTINEZ DO Ot Z3A.21 21 WEEKS GESTATION OF 02/27/2018 KUMAR MARTINEZ DO Ot Z36.89 ENCOUNTER FOR OTHER SPECIFIED 02/27/2018 KUMAR MARTINEZ DO Ot Z3A.00 WEEKS OF GESTATION OF NOT SPEC Procedures Code [place] [address] PSYCH DIAG INTER EXAM 03/05/2012 98162 PSYCHO TESTING 1 HR W COMP 03/24/2012 [...] Routine Final report NRG Result 1 NRG Complete urinalysis with reflex to culture - 01/10/18 10:25 Urine color determination YELLOW NRG Urine clarity determination VERY CLOUDY NRG Urine pH measurement by test strip 7 5-9 Specific gravity of urine by test strip 1.010 1.016- 1.022 Urine protein assay by test strip, semi-quantitative NEGATIVE NEGATIVE Urine glucose detection by automated test strip NEGATIVE NEGATIVE Erythrocytes detection in urine sediment by light microscopy NEGATIVE NEGATIVE Urine ketones detection by automated test strip 2+ NEGATIVE Urine nitrite detection by test strip NEGATIVE NEGATIVE Urine total bilirubin detection by test strip NEGATIVE NEGATIVE Urine urobilinogen measurement by automated test strip (mass/volume) NORMAL NORMAL Urine leukocyte esterase detection by dipstick 3+ NEGATIVE Automated urine sediment erythrocyte count by microscopy (number/high power field) NONE NRG Automated urine sediment leukocyte count by microscopy (number/high power field ) [HPF] NRG Bacteria detection in urine sediment by light microscopy FEW NRG Squamous epithelial cells detection in urine sediment by light microscopy 25-50 NRG Crystals detection in urine sediment by light microscopy NONE NRG Casts detection in urine sediment by light microscopy NONE NRG Mucus detection in urine sediment by light microscopy SMALL NRG Complete urinalysis with reflex to culture YES NRG Bacterial urine culture - 01/10/18 10:25 Bacterial urine culture SEE COMMEN NRG COLONY COUNT . NRG Complete blood count (CBC) with automated white blood cell (WBC) differential - 01/10/18 11:43 Blood leukocytes automated count (number/volume) 9.7 10*3/uL 4.3-11.0 Blood erythrocytes automated count (number/volume) 3.46 10*6/uL 4.35-5.85 Venous blood hemoglobin measurement (mass/volume) 10.9 g/dL 11.5-16.0 Blood hematocrit (volume fraction) 32 % 35-52 Automated erythrocyte mean corpuscular volume 93 [foz_us] 80-99 Automated erythrocyte mean corpuscular hemoglobin (mass per erythrocyte) 32 pg 25-34 Automated erythrocyte mean corpuscular hemoglobin concentration measurement ( mass/volume) 34 g/dL 32-36 Automated erythrocyte distribution width ratio 12.8 % 10.0-14.5 Automated blood platelet count (count/volume) 166 10*3/uL 130-400 Automated blood platelet mean volume measurement 11.2 [foz_us] 7.4-10.4 Automated blood neutrophils/100 leukocytes 74 % 42-75 Automated blood lymphocytes/100 leukocytes 20 % 12-44 Blood monocytes/100 leukocytes 6 % 0-12 Automated blood eosinophils/100 leukocytes 0 % 0-10 Automated blood basophils/100 leukocytes 0 % 0-10 Blood neutrophils automated count (number/volume) 7.2 10*3 1.8-7.8 Blood lymphocytes automated count (number/volume) 2.0 10*3 1.0-4.0 Blood monocytes automated count (number/volume) 0.5 10*3 0.0-1.0 Automated eosinophil count 0.0 10*3/uL 0.0-0.3 Automated blood basophil count (count/volume) 0.0 10*3/uL 0.0-0.1 Complete urinalysis with reflex to culture - 02/10/18 09:25 Urine color determination YELLOW NRG Urine clarity determination CLEAR NRG Urine pH measurement by test strip 7 5-9 Specific gravity of urine by test strip 1.010 1.016- 1.022 Urine protein assay by test strip, semi-quantitative 1+ NEGATIVE Urine glucose detection by automated test strip NEGATIVE NEGATIVE Erythrocytes detection in urine sediment by light microscopy NEGATIVE NEGATIVE Urine ketones detection by automated test strip 2+ NEGATIVE Urine nitrite detection by test strip NEGATIVE NEGATIVE Urine total bilirubin detection by test strip NEGATIVE NEGATIVE Urine urobilinogen measurement by automated test strip (mass/volume) 4 mg/dL NORMAL Urine leukocyte esterase detection by dipstick 2+ NEGATIVE Automated urine sediment erythrocyte count by microscopy (number/high power field) NONE NRG Automated urine sediment leukocyte count by microscopy (number/high power field ) [HPF] NRG Bacteria detection in urine sediment by light microscopy MODERATE NRG Squamous epithelial cells detection in urine sediment by light microscopy 10-25 NRG Crystals detection in urine sediment by light microscopy NONE NRG Casts detection in urine sediment by light microscopy NONE NRG Mucus detection in urine sediment by light microscopy SMALL NRG Complete urinalysis with reflex to culture YES NRG Bacterial urine culture - 02/10/18 09:25 Bacterial urine culture SEE COMMEN NRG COLONY COUNT . NR [id number] - 02/10/18 11:40 [id number] SPECIMEN AVAILABLE NRG Complete urinalysis with reflex to culture - 02/28/18 00:20 Urine color determination YELLOW NRG Urine clarity determination SLIGHTLY CLOUDY NRG Urine pH measurement by test strip 6.5 5-9 Specific gravity of urine by test strip 1.010 1.016- 1.022 Urine protein assay by test strip, semi-quantitative 1+ NEGATIVE Urine glucose detection by automated test strip NEGATIVE NEGATIVE Erythrocytes detection in urine sediment by light microscopy NEGATIVE NEGATIVE Urine ketones detection by automated test strip NEGATIVE NEGATIVE Urine nitrite detection by test strip NEGATIVE NEGATIVE Urine total bilirubin detection by test strip NEGATIVE NEGATIVE Urine urobilinogen measurement by automated test strip (mass/volume) 4 mg/dL NORMAL Urine leukocyte esterase detection by dipstick 2+ NEGATIVE Automated urine sediment erythrocyte count by microscopy (number/high power field) NONE NRG Automated urine sediment leukocyte count by microscopy (number/high power field ) [HPF] NRG Bacteria detection in urine sediment by light microscopy TRACE NRG Squamous epithelial cells detection in urine sediment by light microscopy 10-25 NRG Crystals detection in urine sediment by light microscopy NONE NRG Casts detection in urine sediment by light microscopy NONE NRG Mucus detection in urine sediment by light microscopy SMALL NRG Complete urinalysis with reflex to culture NO NRG Complete blood count (CBC) with automated white blood cell (WBC) differential - 02/28/18 01:30 Blood leukocytes automated count (number/volume) 10.9 10*3/uL 4.3-11.0 Blood erythrocytes automated count (number/volume) 3.60 10*6/uL 4.35-5.85 Venous blood hemoglobin measurement (mass/volume) 10.9 g/dL 11.5-16.0 Blood hematocrit (volume fraction) 33 % 35-52 Automated erythrocyte mean corpuscular volume 92 [foz_us] 80-99 Automated erythrocyte mean corpuscular hemoglobin (mass per erythrocyte) 30 pg 25-34 Automated erythrocyte mean corpuscular hemoglobin concentration measurement ( mass/volume) 33 g/dL 32-36 Automated erythrocyte distribution width ratio 14.5 % 10.0-14.5 Automated blood platelet count (count/volume) 180 10*3/uL 130-400 Automated blood platelet mean volume measurement 12.0 [foz_us] 7.4-10.4 Automated blood neutrophils/100 leukocytes 62 % 42-75 Automated blood lymphocytes/100 leukocytes 30 % 12-44 Blood monocytes/100 leukocytes 8 % 0-12 Automated blood eosinophils/100 leukocytes 1 % 0-10 Automated blood basophils/100 leukocytes 0 % 0-10 Blood neutrophils automated count (number/volume) 6.8 10*3 1.8-7.8 Blood lymphocytes automated count (number/volume) 3.2 10*3 1.0-4.0 Blood monocytes automated count (number/volume) 0.9 10*3 0.0-1.0 Automated eosinophil count 0.1 10*3/uL 0.0-0.3 Automated blood basophil count (count/volume) 0.0 10*3/uL 0.0-0.1 Encounters ACCT No. Visit Date/Time Discharge Status Pt. Type Provider Facility Loc./Unit Complaint [id number] 03/23/2012 11:53:00 03/23/2012 23:59:59 CLS Outpatient LUZ PHD, DERIK Sotelo [id number] 03/05/2012 12:56:00 03/05/2012 23:59:59 CLS Outpatient [id number] 11/22/2016 13:06:00 Document Registration [id number] 02/10/2018 09:38:00 02/10/2018 14:35:00 DIS Outpatient KUMAR MARTINEZ DO Via [facility] WSo CONTRACTIONS [id number] 01/10/2018 10:15:00 01/10/2018 12:24:00 DIS Outpatient KUMAR MARTINEZ DO [facility] WSo ABD PAIN [id number] 12/12/2017 12:06:00 12/12/2017 23:59:59 CLS Outpatient KUMAR MARTINEZ DO [facility] RAD EVALUATE ANATOMY NOT SEEN ON PRIOR SONOGRAM [id number] 12/02/2017 11:30:00 12/02/2017 14:17:00 DIS Emergency LAUREEN STEWART [facility] ER FALL;26 WKS [id number] 11/04/2017 09:48:00 11/04/2017 23:59:59 CLS Outpatient KUMAR MARTINEZ DO [facility] RAD 15 WEEKS GESTATION OF [id number] 08/21/2012 15:15:00 08/22/2012 15:35:00 DIS Outpatient NATALY DE SANTIAGO MD [facility] SDC CHOLECYSTITIS UTI [id number] 02/28/2018 01:08:00 ACT Inpatient KUMAR MARTINEZ DO [facility] LDRP LABOR [id number] 07/19/2011 13:37:00 Document Registration [id number] 07/14/2011 20:57:00 Document Registration [id number] 07/02/2011 15:07:00 Document Registration [id number] 06/09/2011 13:32:00 Document Registration [id number] 05/14/2011 14:53:00 Document Registration [id number] 11/21/2016 22:08:00 Document Registration [id number] 07/15/2017 16:40:00 07/15/2017 23:59:59 CLS Outpatient LEXX [facility] [place] [id number] 11/19/2016 15:00:00 Document Registration
[2018-02-28] MEDS ORDERED: FLU QUADRIvalent (5+ YOA) 2018-2019 (AFLURIA) 0.5 ML IM ONE (07:15)
[2018-02-28] MEDS: CATHETER FLUSH 10 ML SYR IV SCH ×2 (08:26→16:32)
[2018-02-28] MEDS ORDERED: SUFENTA 0.6MCG/ML BUPIVA 0.125 100 ML ONE (09:31)
[2018-02-28] MEDS ORDERED: fentaNYL INJECTION 100 MCG/2 ML AMP ONE ×2 (10:59→11:19)
[2018-02-28] MEDS ORDERED: LACTATED RINGERS 1,000 ML IV SCH (11:51)
[2018-02-28] MEDS ORDERED: NALOXONE 0.4 MG/ML 1 ML (NARCAN) VIAL IV PRN (12:00)
[2018-02-28] MEDS ORDERED: ONDANSETRON 4 MG/2 ML (SDV) Z0FRAN IV PRN (12:00)
[2018-02-28] MEDS ORDERED: diphenhydrAMINE 50 MG/ML INJ (BENADRYL) IV PRN (12:00)
[2018-02-28] MEDS ORDERED: EPIDURAL (SUFENTA 0.6MCG/ML BUPIVA 0.125%) 100 ML BAG EPI PRN (12:00)
[2018-02-28] MEDS ORDERED: OXYTOCIN/NORMAL SALINE 500 ML IV ONE ×2 (15:32→18:45)
--- NOTE | 2018-02-28 16:58 | History & Physical-OB ---
OB - Chief Complaint & HPI Date/Time Date of Admission: Date of Admission: Feb 28, 2018 at 1:08 am Date seen by a Provider: Feb 28, 2018 Time Seen by a Provider: 09:00 Chief Complaint/History OB-Reason for Admission/Chief: Onset of Labor Hx : 3 Hx Para: 1 Expected Date of Delivery: Mar 12, 2018 Gestational Age in Weeks: 38 Gestational Age in Days: 2 Other reason for admission: Patient presents with complaint of increasing contractions. She was tri every 4-6 minutes on admission and was 4 cm dilated. She was admitted for labor. No bleeding, good movement, no leakage of fluid. Admission Nurse Assessment Rev: Yes History of Labs A-/- GBS - HIV- HBsAg- VDRL NR Allergies and Home Medications Allergies Coded Allergies: No Known Drug Allergies (Unverified , 05/14/11) Home Medications [id number]/Iron Fumarate/FA/Dss 1 Each Tablet, 1 EACH PO DAILY, (Reported) Patient Home Medication List Home Medication List Reviewed: Yes OB - History Hx of Present Care: Yes Ultrasounds: Normal mid trimester US Obstetrical Complications: None Medical Complications: None Information Induced Hypertension: No Maternal Gestational Diabetes: No Hemorrhage: No Obstetrical History Hx : 3 Hx Para: 1 Hx Total # of Abortions (Spona: 1 Delivery History Hx Dystocia: No Hx Forceps Assisted Delivery: No Hx Vacuum Extraction Assisted: No Hx Placenta Abnormality: No Hx Distress: No Hx Large For Gestational Age I: No Hx Small for Gestational Age I: No Hx Section: No Hx Blood Disorders: No Adverse Rxn to Tranfusion: No Patient Past Medical History NC Social History/Family History HIV/AIDS: No Recent Infectious Disease Expo: No Alcohol Use: Denies Use Recreational Drug Use: No (past history of THC) Smoking Cessation: Former smoker (THC) 2nd Hand Smoke Exposure: Yes Immunizations Tetanus Booster (TDap): Less than 5yrs Rubella: immune RPR/VDRL: Negative GBS Status: Negative HBsAG: Negative OB - Admission Exam Physical Exam Vitals: Vital Signs 02/28/18 02/28/18 05:30 06:50 Temp 97.0 Pulse 108 Resp 18 B/P (MAP) 108/70 (83) O2 Delivery Room Air Lungs: Clear Abdomen: Gravid Extremities: Normal Cervical Dilatation: 5cm Effacement: 75% Station: -1 Membranes: Intact (AROM) Amniotic Fluid: Clear Heart Rate: 140's Accelerations: Accelerations Present Decelerations: Early Decelerations Short Term Variability: Present Penitentiary Variability: Average (6-25) Contractions on Admission: < 5 Minutes Apart Labs Laboratory Tests Test 02/28/18 00:20 02/28/18 01:30 Range/Units Urine Color YELLOW Urine Clarity SLIGHTLY CLOUDY Urine pH 6.5 5-9 Urine Specific [place] 1.010 L 1.016-1.022 Urine Protein 1+ H NEGATIVE Urine Glucose (UA) NEGATIVE NEGATIVE Urine Ketones NEGATIVE NEGATIVE Urine Nitrite NEGATIVE NEGATIVE Urine Bilirubin NEGATIVE NEGATIVE Urine Urobilinogen 4 H NORMAL MG/DL Urine Leukocyte Esterase 2+ H NEGATIVE Urine RBC (Auto) NEGATIVE NEGATIVE Urine RBC NONE /HPF Urine WBC 0-2 /HPF Urine Squamous Epithelial Cells 10-25 H /HPF Urine Crystals NONE /LPF Urine Bacteria TRACE /HPF Urine Casts NONE /LPF Urine Mucus SMALL H /LPF Urine Culture Indicated NO White Blood Count 10.9 4.3-11.0 10^3/uL Red Blood Count 3.60 L 4.35-5.85 10^6/uL Hemoglobin 10.9 L 11.5-16.0 G/DL Hematocrit 33 L 35-52 % Mean Corpuscular Volume 92 80-99 FL Mean Corpuscular Hemoglobin 30 25-34 PG Mean Corpuscular Hemoglobin Concent 33 32-36 G/DL Red Cell Distribution Width 14.5 10.0-14.5 % Platelet Count 180 130-400 10^3/uL Mean Platelet Volume 12.0 H 7.4-10.4 FL Neutrophils (%) (Auto) 62 42-75 % Lymphocytes (%) (Auto) 30 12-44 % Monocytes (%) (Auto) 8 0-12 % Eosinophils (%) (Auto) 1 0-10 % Basophils (%) (Auto) 0 0-10 % Neutrophils # (Auto) 6.8 1.8-7.8 X 10^3 Lymphocytes # (Auto) 3.2 1.0-4.0 X 10^3 Monocytes # (Auto) 0.9 0.0-1.0 X 10^3 Eosinophils # (Auto) 0.1 0.0-0.3 10^3/uL Basophils # (Auto) 0.0 0.0-0.1 10^3/uL OB - Assessment/Plan/Diagnosis Assessment Assessment: active labor Admission Dx Labor Admission Status: Inpatient Order (span 2 midnights) Reason for Inpatient Admission: Labor Plan Plan: Expectant Management (Admit for labor. Desires epidural. Anticipate . AROM accomplished ) KUMAR MARTINEZ DO Feb 28, 2018 4:58 pm
[2018-02-28] MEDS ORDERED: OXYTOCIN/NORMAL SALINE 500 ML IV SCH (17:47)
--- NOTE | 2018-02-28 17:52 | OB Labor & Delivery Record ---
Vag Delivery Note Vag Delivery Note Date of Delivery: 02/28/18 Preoperative Diagnosis: Jerilyn Javed is a 27 /Para 3 / 1, Gestational Age 38 weeks with SROM and labor Postoperative Diagnosis: Same Surgeon: KUMAR MARTINEZ Anesthesia: epidural Delivery Type: vaginal Findings: Viable male , apgars 8/9, weight pending Lacerations: none Intact placenta with 3 vessel cord. No nuchal cord, body cord or shoulder dystocia Estimated Blood Loss: 400 ml Complications: None Condition: Stable Description of Procedure: The patient is a 27 /Para 3 / 1,Gestational Age 38 weeks with SROM and labor. She was admitted and informed consent was obtained. Her labor course was remarkable for augmentation with Pitocin. She progressed to complete dilatation and began to push. She was then set up for delivery. The 's head was delivered atraumatically in the OA position. The shoulders and remainder of the 's body were then delivered without difficulty. Upon delivery, the head was held below the level of the perineum and the mouth and nares were bulb suctioned. The cord was doubly clamped and cut and the was handed off to the pediatric staff. An intact placenta with 3-vessel cord delivered via Katya and there was found to be minimal bleeding.~ Vigorous fundal massage was performed and the fundus was found to be firm. IV oxytocin was given. Examination of the vagina and perineum revealed no laceration. Following the delivery, sponge, instrument and needle counts were correct. Mom and baby were both in stable condition in the labor suite. Vitals - Labs Vital Signs - I&O Vital Signs Date Time Temp Pulse Resp B/P (MAP) Pulse Ox O2 Delivery O2 Flow Rate FiO2 02/28/18 06:50 108 18 108/70 (83) Room Air 02/28/18 06:35 80 18 116/70 (85) Room Air 02/28/18 06:00 80 18 113/66 (82) Room Air 02/28/18 05:30 97.0 78 18 109/73 (85) Room Air 02/28/18 05:00 93 18 93/68 (76) Room Air 02/28/18 04:00 97.0 87 18 106/61 (76) Room Air 02/28/18 03:20 86 18 117/71 (86) Room Air 02/28/18 02:10 84 18 108/66 (80) Room Air 02/28/18 01:30 86 18 113/77 (89) Room Air 02/28/18 00:00 97.1 104 18 111/72 (85) Room Air Labs Laboratory Tests 02/28/18 00:20: Urine Color YELLOW, Urine Clarity SLIGHTLY CLOUDY, Urine pH 6.5, Urine Specific [place] 1.010L, Urine Protein 1+H, Urine Glucose (UA) NEGATIVE, Urine Ketones NEGATIVE, Urine Nitrite NEGATIVE, Urine Bilirubin NEGATIVE, Urine Urobilinogen 4H, Urine Leukocyte Esterase 2+H, Urine RBC (Auto) NEGATIVE, Urine RBC NONE, Urine WBC 0-2, Urine Squamous Epithelial Cells 10-25H, Urine Crystals NONE, Urine Bacteria TRACE, Urine Casts NONE, Urine Mucus SMALLH, Urine Culture Indicated NO 02/28/18 01:30: White Blood Count 10.9, Red Blood Count 3.60L, Hemoglobin 10.9L, Hematocrit 33L , Mean Corpuscular Volume 92, Mean Corpuscular Hemoglobin 30, Mean Corpuscular Hemoglobin Concent 33, Red Cell Distribution Width 14.5, Platelet Count 180, Mean Platelet Volume 12.0H, Neutrophils (%) (Auto) 62, Lymphocytes (%) (Auto) 30 , Monocytes (%) (Auto) 8, Eosinophils (%) (Auto) 1, Basophils (%) (Auto) 0, Neutrophils # (Auto) 6.8, Lymphocytes # (Auto) 3.2, Monocytes # (Auto) 0.9, Eosinophils # (Auto) 0.1, Basophils # (Auto) 0.0 KUMAR MARTINEZ DO Feb 28, 2018 5:52 pm
[2018-02-28] MEDS ORDERED: MEASLES,MUMPS,RUBELLA 1 EA INJ SQ ONE (18:00)
[2018-02-28] MEDS ORDERED: DIBUCAINE (NUPERCAINAL) 1% OINT 30 GM TOP PRN (18:00)
[2018-02-28] MEDS ORDERED: ACETAMINOPHEN 500 MG TAB (TYLENOL) PO PRN (18:00)
[2018-02-28] MEDS ORDERED: WITCH HAZEL(TUCKS) 40 EA JAR TOP PRN (18:00)
[2018-02-28] MEDS ORDERED: TETANUS,DIPTH,PERTUSS P/F (BOOSTRIX) 0.5 ML VIAL IM ONE (18:00)
[2018-02-28] MEDS: DOCUSATE SODIUM 100 MG (COLACE) CAP PO SCH (20:12)
[2018-02-28] MEDS: IBUPROFEN 600 MG (MOTRIN) TAB PO SCH (20:12)
[2018-02-28] MEDS ORDERED: CATHETER FLUSH 10 ML SYR IV SCH (22:00)
[2018-03-01 01:11] VITALS: BP 114/57
[2018-03-01] MEDS: IBUPROFEN 600 MG (MOTRIN) TAB PO SCH ×4 (02:17→20:06)
[2018-03-01 04:34] VITALS: BP 128/81
[2018-03-01 06:09] LABS: BASOPHILS % (AUTO) 0 % (0-10); EOSINOPHILS % (AUTO) 0 % (0-10); HEMATOCRIT 28 % (35-52); HEMOGLOBIN 9.1 G/DL (11.5-16.0); LYMPHOCYTES % (AUTO) 22 % (12-44); MEAN CORPUSCULAR HEMOGLOBIN 30 PG (25-34); MEAN CORPUSCULAR HGB CONC 32 G/DL (32-36); MEAN CORPUSCULAR VOLUME 92 FL (80-99); MEAN PLATELET VOLUME 12.2 FL (7.4-10.4); MONOCYTES # (AUTO) 0.8 X 10^3 (0.0-1.0); MONOCYTES % (AUTO) 6 % (0-12); NEUTROPHILS # (AUTO) 9.6 X 10^3 (1.8-7.8); NEUTROPHILS % (AUTO) 72 % (42-75); PLATELET COUNT 169 10^3/uL (130-400); RED BLOOD COUNT 3.04 10^6/uL (4.35-5.85); RED CELL DISTRIBUTION WIDTH 14.6 % (10.0-14.5); WHITE BLOOD COUNT 13.5 10^3/uL (4.3-11.0)
[2018-03-01 09:30] VITALS: BP 117/63
[2018-03-01] MEDS: FERROUS SULF 325 MG (IRON) TAB PO SCH (09:48)
[2018-03-01] MEDS: PRENATAL VITAMIN 1 EA TAB PO SCH (09:49)
[2018-03-01] MEDS: DOCUSATE SODIUM 100 MG (COLACE) CAP PO SCH ×2 (09:49→20:06)
[2018-03-01] MEDS: BENZOCAINE/MENTHOL (DERMOPLAST) 56 ML CAN TP PRN (09:50)
--- NOTE | 2018-03-01 10:53 | Postpartum Progress Note ---
Note Note Day # 1 s/p Subjective: Patient is without complaints. Ambulating, voiding. Tolerating a regular diet without nausea or vomiting. Normal lochia. Pain is well controlled with oral pain medications. breast feeding. Passed some large clots on transfer yesterday , so a 2nd bad of oxytocin was infused. Bleeding is better today. Objective: Laboratory Tests Test 03/01/18 05:59 Range/Units White Blood Count 13.5 H 4.3-11.0 10^3/uL Red Blood Count 3.04 L 4.35-5.85 10^6/uL Hemoglobin 9.1 L 11.5-16.0 G/DL Hematocrit 28 L 35-52 % Mean Corpuscular Volume 92 80-99 FL Mean Corpuscular Hemoglobin 30 25-34 PG Mean Corpuscular Hemoglobin Concent 32 32-36 G/DL Red Cell Distribution Width 14.6 H 10.0-14.5 % Platelet Count 169 130-400 10^3/uL Mean Platelet Volume 12.2 H 7.4-10.4 FL Neutrophils (%) (Auto) 72 42-75 % Lymphocytes (%) (Auto) 22 12-44 % Monocytes (%) (Auto) 6 0-12 % Eosinophils (%) (Auto) 0 0-10 % Basophils (%) (Auto) 0 0-10 % Neutrophils # (Auto) 9.6 H 1.8-7.8 X 10^3 Lymphocytes # (Auto) 3.0 1.0-4.0 X 10^3 Monocytes # (Auto) 0.8 0.0-1.0 X 10^3 Eosinophils # (Auto) 0.0 0.0-0.3 10^3/uL Basophils # (Auto) 0.0 0.0-0.1 10^3/uL 03/01/18 03/01/18 01:11 04:34 Temp 97.4 97.9 Pulse 94 101 Resp 18 18 B/P (MAP) 114/57 (76) 128/81 (97) Pulse Ox 97 97 O2 Delivery Room Air Room Air 03/01/18 00:00 Intake Total 1500 ml Output Total 250 ml Balance 1250 ml Physical Exam: General - Alert and oriented, no apparent distress Abdomen - Soft, appropriately tender to palpation, non-distended, fundus firm at umbilicus Extremities - no edema, negative Reymundo's bilaterally Assessment: 1. post- day # 1, status post spontaneous vaginal delivery. Recovering well, hemodynamically stable Plan: Routine care. Encourage breast feeding. Encourage ambulation. Ferrous sulfate supplementation. Plan for discharge tomorrow Vitals - Labs Vital Signs - I&O Vital Signs Date Time Temp Pulse Resp B/P (MAP) Pulse Ox O2 Delivery O2 Flow Rate FiO2 03/01/18 04:34 97.9 101 18 128/81 (97) 97 Room Air 03/01/18 01:11 97.4 94 18 114/57 (76) 97 Room Air 02/28/18 20:22 97.2 90 18 111/65 (80) Room Air 02/28/18 17:40 90 18 117/60 (79) Room Air 02/28/18 17:25 81 18 127/75 (92) Non Rebreather 10.00 02/28/18 17:10 86 18 115/70 (85) Non Rebreather 10.00 02/28/18 16:55 86 18 115/70 (85) 97 Room Air 02/28/18 16:40 84 18 118/73 (88) 97 Room Air 02/28/18 16:25 88 18 117/69 (85) 94 Room Air 02/28/18 16:10 94 18 124/76 (92) 94 Room Air 02/28/18 15:55 84 18 109/68 (82) 97 Room Air 02/28/18 15:40 98.2 81 18 125/69 (87) 96 Room Air 02/28/18 15:25 90 18 114/64 (81) 97 Room Air 02/28/18 15:10 85 18 118/76 (90) 96 Room Air 02/28/18 14:55 86 18 111/71 (84) 97 Room Air 02/28/18 14:40 90 18 112/74 (87) 95 Room Air 02/28/18 14:29 82 18 95/67 (76) 95 Room Air 02/28/18 13:00 76 18 113/61 (78) 98 Room Air 02/28/18 12:40 76 18 113/61 (78) 98 Room Air 02/28/18 12:25 82 18 109/63 (78) 99 Room Air 02/28/18 12:20 66 18 103/62 (76) 99 Room Air 02/28/18 12:18 67 18 102/60 (74) 99 Room Air 02/28/18 12:15 79 18 114/55 (74) 99 Room Air 02/28/18 12:09 61 18 109/62 (78) 99 Room Air 02/28/18 12:06 76 18 108/61 (77) 97 Room Air 02/28/18 12:03 65 18 104/59 (74) 97 Room Air 02/28/18 11:58 61 18 106/63 (77) 97 Room Air 02/28/18 11:53 74 18 108/66 (80) 97 Room Air 02/28/18 11:50 71 18 113/67 (82) 98 Room Air 02/28/18 11:46 85 18 117/74 (88) 92 Room Air 02/28/18 11:45 84 18 121/72 (88) 97 Room Air 02/28/18 11:43 85 18 111/69 (83) 96 Room Air 02/28/18 11:40 75 18 114/70 (85) 96 Room Air 02/28/18 11:38 84 18 121/72 (88) 96 Room Air 02/28/18 11:25 88 18 128/77 (94) Room Air 02/28/18 11:05 88 18 120/84 (96) Room Air 02/28/18 10:55 103 18 133/80 (97) Room Air I & O 03/01/18 07:00 Intake Total 2500 ml Output Total 250 ml Balance 2250 ml Labs Laboratory Tests 03/01/18 05:59: White Blood Count 13.5H, Red Blood Count 3.04L, Hemoglobin 9.1L, Hematocrit 28L , Mean Corpuscular Volume 92, Mean Corpuscular Hemoglobin 30, Mean Corpuscular Hemoglobin Concent 32, Red Cell Distribution Width 14.6H, Platelet Count 169, Mean Platelet Volume 12.2H, Neutrophils (%) (Auto) 72, Lymphocytes (%) (Auto) 22 , Monocytes (%) (Auto) 6, Eosinophils (%) (Auto) 0, Basophils (%) (Auto) 0, Neutrophils # (Auto) 9.6H, Lymphocytes # (Auto) 3.0, Monocytes # (Auto) 0.8, Eosinophils # (Auto) 0.0, Basophils # (Auto) 0.0 KUMAR MARTINEZ 16, 2018 10:53 am
[2018-03-01 14:35] VITALS: BP 128/73
[2018-03-01 20:00] VITALS: BP 115/77
[2018-03-02] MEDS: IBUPROFEN 600 MG (MOTRIN) TAB PO SCH ×2 (02:39→09:03)
[2018-03-02 02:40] VITALS: BP 132/82
[2018-03-02 09:01] VITALS: BP 115/72
[2018-03-02] MEDS: PRENATAL VITAMIN 1 EA TAB PO SCH (09:03)
[2018-03-02] MEDS: FERROUS SULF 325 MG (IRON) TAB PO SCH (09:03)
[2018-03-02] MEDS: DOCUSATE SODIUM 100 MG (COLACE) CAP PO SCH (09:03)
[2018-03-02] MEDS: BENZOCAINE/MENTHOL (DERMOPLAST) 56 ML CAN TP PRN (10:50)
[2018-03-02] MEDS ORDERED: ACET-77 PO (11:13)
[2018-03-02] MEDS ORDERED: IBUP-844 PO (11:13)
--- NOTE | 2018-03-02 11:29 | Discharge Inst-Women's Service ---
Discharge Inst-Women's Serv Depart Medication/Instructions New, Converted or Re-Newed RX: Transmitted to Pharmacy Final Diagnosis vaginal delivery epidural Consults/Follow Up Additional Follow Up: Yes Activity Activity: Activity as Tolerated Driving Instructions: You May Drive NO SMOKING: NO SMOKING Nothing Inside Vagina: No Douching, No Assumption, No Tampons Diet Discharge Diet: No Restrictions Symptoms to Report to : Swelling Increased, Eyesight Changes, Pain Increased , Fever Over 101 Degrees F, Vaginal Bleeding Increase, Cramps in Feet or Legs, Vaginal Discharge Foul For Any Problems or Questions: Contact Your Physician KUMAR MARTINEZ DO Mar 02, 2018 11:29
[2018-03-02 12:40] VITALS: BP 115/72
== END 2018-03-02 13:00 | disposition home or self-care (01) | DRG 807 ==
LOC: WSo 23:49 → LDRP 23:52 → WSo 02-28 01:08 → LDRP 02-28 01:08
PROVIDERS: ADMIT Obstetrics & Gynecology; ATTEND Obstetrics & Gynecology
PROC: 10E0XZZ Delivery of Products of Conception, External Approach (ICD-10-PCS; principal; 2018-02-28)
DX: O80 Encounter for full-term uncomplicated delivery (principal); Z3A.38 38 weeks gestation of pregnancy; Z37.0 Single live birth; Z87.891 Personal history of nicotine dependence
CPT/HCPCS: 36415; 81000; 83033; 85025; 86850; 86900; 86901; 99212